=== PATIENT | female | born 1930 | race Caucasian/White ===

== ENCOUNTER 2017-05-28 09:42 | Observation (INO) | payer MEDICARE ==
[~2017-05-28] VITALS: Ht 160 cm; Wt 79.8 kg
[~2017-05-28 09:42] MED LIST: ADLT ASA LOW81 MG PO; ALPRAZOLAM0.25 M1 PO; AMLODIPINE2.5 MG PO; ATENOLOL50 MG PO; CELEBREX200 MG PO; DIOVAN80 MG PO; FISH OIL1000 MG PO; GARLIC2000 MG OR; KEFLEX500 MG PO; LEVEMIR1000 UNITS SC; MIRALAX3350 N1 PO; MULTIVITAMI1 OR; NEXIUM40 M1 PO; NOVOLOG MIX100 U/ML SC; PRAVASTATIN10 MG PO; VESICARE5 MG PO; [UNRECOGNIZED DRUG - CODE] PO; [UNRECOGNIZED DRUG - OTHER] PO
[2017-05-28 10:53] LABS: HEMATOCRIT 44.6 % (37.0-47.0); HEMOGLOBIN 14.6 g/dl (12.0-16.0); IMMATURE GRANULOCYTES 0.5 % (0.0-1.0); MEAN CELL VOLUME 93.9 fL CALC (80.0-100.0); MEAN CORPUSCULAR HGB 30.7 pG CALC (26.0-32.0); MEAN CORPUSCULAR HGB CONC 32.7 g/L CALC (32.0-36.0); NEUT# 17.18 thou/uL (2.00-7.15); RED BLOOD COUNT 4.75 mill/uL (4.20-5.60); RED CELL DISTRI WIDTH 13.9 % (11.5-15.5)
[2017-05-28 10:54] LABS: URINE BILIRUBIN - DIPSTICK NEGATIVE (NEGATIVE); URINE BLOOD DIPSTICK TRACE-LYSED (NEGATIVE); URINE COLOR YELLOW; URINE GLUCOSE - DIPSTICK 250 mg/dL (NEGATIVE); URINE KETONE NEGATIVE (NEGATIVE); URINE PROTEIN - DIPSTICK NEGATIVE (NEG-TRACE); URINE SPECIFIC GRAVITY <=1.005; URINE UROBILINOGEN - DIPSTICK 0.2 E.U./dL (0.2)
[2017-05-28 11:12] LABS: URINE CLARITY HAZY; URINE LEUK ESTERASE MODERATE (NEGATIVE); URINE NITRITE - DIPSTICK POSITIVE (Negative)
[2017-05-28 11:15] LABS: URINE EPITHELIAL CELLS MODERATE EPI/hpf (0-FEW); URINE RBC 0-2 RBC/hpf (0-5); URINE WBC 20-50 WBC/hpf (0-5)
[2017-05-28 11:16] LABS: URINE BACTERIA MANY hpf
[2017-05-28 11:45] LABS: ALBUMIN 4.1 g/dL (3.2-5.0); ALKALINE PHOSPHATASE 53 u/l (38-126); ANION GAP 14 (6-22 (CALC)); BILIRUBIN, TOTAL 0.6 mg/dL (0.0-1.4); BUN 16 mg/dL (8-23); BUN/CREATININE RATIO 29 (12-20 (CALC)); CALCIUM 9.7 mg/dL (8.4-10.2); CARBON DIOXIDE 28 mmol/l (22-30); CHLORIDE 105 mmol/l (95-108); CREATININE 0.6 mg/dL (0.5-1.0); GFR > 60 ML/MIN (>=60 (CALC)); GFR FOR AFR.AMER. > 60 ML/MIN (>=60 (CALC)); GLUCOSE 155 mg/dL (82-115); POTASSIUM 4.1 mmol/l (3.5-5.1); SGOT/AST 15 u/l (9-36); SGPT/ALT 21 u/l (11-66); SODIUM 142 mmol/l (137-146); TOTAL PROTEIN 6.9 g/dL (6.3-8.2)
[2017-05-28 11:54] LABS: MYOGLOBIN 45 ng/mL (0 - 62)
[2017-05-28] MEDS ORDERED: DIOVAN80 MG PO (13:54)
[2017-05-28] MEDS ORDERED: PRILOSEC20 MG/CAP PO (13:54)
[2017-05-28] MEDS ORDERED: ECK MAGNESIU250 MG PO (13:55)
[2017-05-28] MEDS ORDERED: ASPIRIN81 MG PO (13:55)
[2017-05-28] MEDS ORDERED: NOVOLOG100 UNIT/M SC (13:56)
[2017-05-28 16:14] VITALS: BP 124/76
[2017-05-28 19:36] VITALS: BP 132/69
[2017-05-29 00:43] VITALS: BP 137/74
[2017-05-29 04:19] VITALS: BP 135/76
[2017-05-29 06:51] LABS: HEMATOCRIT 40.9 % (37.0-47.0); HEMOGLOBIN 13.2 g/dl (12.0-16.0); MEAN CELL VOLUME 94.9 fL CALC (80.0-100.0); MEAN CORPUSCULAR HGB 30.6 pG CALC (26.0-32.0); MEAN CORPUSCULAR HGB CONC 32.3 g/L CALC (32.0-36.0); RED BLOOD COUNT 4.31 mill/uL (4.20-5.60)
[2017-05-29 07:03] LABS: CHOLESTEROL HDL RATIO 2.5 (<4.4 (CALC))
[2017-05-29 07:55] VITALS: BP 126/76
[2017-05-29 11:10] VITALS: BP 126/70
[2017-05-29] MEDS ORDERED: ATENOLOL50 MG PO (13:03)
[2017-05-29] MEDS ORDERED: CIPROFLOXACN500 MG PO (13:52)
== END 2017-05-29 15:53 | disposition home or self-care (01) ==
LOC: ED 09:42 → ED-I 10:15 → ED 10:15 → ED-I 13:03 → ED 13:14 → MS2 13:15
PROVIDERS: Emergency Medicine; ADMIT Internal Medicine; ATTEND Internal Medicine
DX: R07.2 Precordial pain (principal); E11.9 Type 2 diabetes mellitus without complications; I10 Essential (primary) hypertension; K21.9 Gastro-esophageal reflux disease without esophagitis; F41.9 Anxiety disorder, unspecified; N39.0 Urinary tract infection, site not specified; B96.20 Unspecified Escherichia coli [E. coli] as the cause of diseases classified elsewhere; E78.5 Hyperlipidemia, unspecified; Z95.5 Presence of coronary angioplasty implant and graft

== ENCOUNTER 2019-06-12 18:47 | Emergency (ER) | payer MEDICARE ==
[~2019-06-12] VITALS: Ht 160 cm; Wt 78.6 kg
[~2019-06-12 18:47] MED LIST changes: +ASPIRIN81 MG PO; +CIPROFLOXACN500 MG PO; +ECK MAGNESIU250 MG PO; +NOVOLOG100 UNIT/M SC; +PRILOSEC20 MG/CAP PO
[2019-06-12 19:41] LABS: HEMATOCRIT 41.4 % (37.0-47.0); HEMOGLOBIN 13.3 g/dl (12.0-16.0); IMMATURE GRANULOCYTES 1.1 % (0.0-5.0); MEAN CELL VOLUME 93.5 fL CALC (80.0-100.0); MEAN CORPUSCULAR HGB CONC 32.1 g/L CALC (32.0-36.0); NEUT# 8.29 thou/uL (2.00-7.15); RED BLOOD COUNT 4.43 mill/uL (4.20-5.60); RED CELL DISTRI WIDTH 13.3 % (11.5-15.5)
[2019-06-12 19:57] LABS: ANION GAP 12 (6-22 (CALC)); BUN 20 mg/dL (8-23); BUN/CREATININE RATIO 43 (12-20 (CALC)); CARBON DIOXIDE 26 mmol/l (22-30); CHLORIDE 102 mmol/l (95-108); CREATININE 0.5 mg/dL (0.5-1.0); GFR > 60 ML/MIN (>=60 (CALC)); GFR FOR AFR.AMER. > 60 ML/MIN (>=60 (CALC)); POTASSIUM 3.7 mmol/l (3.5-5.1); SODIUM 136 mmol/l (137-146)
[2019-06-12 20:58] VITALS: BP 175/80
[2019-06-12] MEDS ORDERED: TRESIBA100 UNIT/M SC (21:38)
[2019-06-12] MEDS ORDERED: ATENOLOL50 MG PO (21:39)
[2019-06-12] MEDS ORDERED: PLENDIL5 MG PO (21:40)
[2019-06-12] MEDS ORDERED: LOSARTAN POTASS50 MG PO (21:40)
[2019-06-12] MEDS ORDERED: CLARITIN RDT10 MG PO (21:41)
[2019-06-12] MEDS ORDERED: XANAX0.25 MG PO (21:43)
[2019-06-12] MEDS ORDERED: GNP ACETAMINOP500 MG PO (21:45)
== END 2019-06-12 20:58 | disposition home or self-care (01) ==
LOC: ED 18:47
PROVIDERS: Family Medicine
DX: S00.83XA Contusion of other part of head, initial encounter (principal); R07.89 Other chest pain; M25.512 Pain in left shoulder; W18.39XA Other fall on same level, initial encounter